=== PATIENT | female | born 1990 | race American Indian/Alaskan Native ===

== ENCOUNTER 2019-12-23 11:03 | Emergency (ER) | payer SELFPAY ==
[2019-12-23 11:15] VITALS: BP 110/68
--- NOTE | 2019-12-23 11:57 | Emergency Department Report ---
ED Female HPI - General Chief complaint: Urogenital-Female Stated complaint: VAGINAL CYST Time Seen by Provider: 12/23/19 11:36 Source: patient Mode of arrival: Ambulatory Limitations: No Limitations - History of Present Illness Initial comments: Patient is a 29-year-old female presents to the ED with complaints of a right- sided Bartholin cyst that began 2 weeks ago. She states that it has slightly increased over the last 4 days. She states it has become more uncomfortable. Patient states that she has recurrently had this Bartholin cyst since 2012. She states that she has had it drained multiple times since 2012. She states that in 2018 that her MATHEMATICAL SCIENTIST Dr. Cruz performed an I&D and stitched it to remain open and draining which she states improved it for a while. She states she typically uses warm compresses and it intermittently comes and goes and drains on its own. She denies any drainage currently, no fever, no vomiting, no c hills, no lesions or blisters. She states her last menstrual cycle December 15, 2019. No other past medical history. No allergies to medications. - Related Data Previous Rx's Medication Instructions Recorded Last Taken Type Acetaminophen/Codeine 1 tab PO Q6H PRN #30 tab 01/08/14 Unknown Rx [Acetaminophen-Codeine #3 TAB] Ibuprofen [Motrin] 600 mg PO Q8H PRN #60 tablet 01/08/14 Unknown Rx Sulfamethoxazole/Trimethoprim 1 each PO BID #20 tablet 01/08/14 Unknown Rx [Bactrim Ds] Acetaminophen/Codeine [Tylenol 1 tab PO Q6H PRN #10 tab 12/23/19 Unknown Rx /Codeine # 3 tab] Ibuprofen [Motrin 600 MG tab] 600 mg PO Q8H PRN #14 tablet 12/23/19 Unknown Rx Sulfamethoxazole/Trimethoprim 1 each PO BID 7 Days #14 tablet 12/23/19 Unknown Rx [Bactrim DS TAB] metroNIDAZOLE [Flagyl] 500 mg PO BID 7 Days #14 tab 12/23/19 Unknown Rx Allergies Allergy/AdvReac Type Severity Reaction Status Date / Time No Known Allergies Allergy Unverified 01/08/14 16:13 ED Review of Systems ROS: Stated complaint: VAGINAL CYST Other details as noted in HPI Comment: All other systems reviewed and negative ED Past Medical Hx - Past Medical History Previous Medical History?: Yes Additional medical history: Bartholin cyst - Surgical History Past Surgical History?: No - Social History Smoking Status: Never Smoker Substance Use Type: None - Medications Home Medications: Home Medications Medication Instructions Recorded Confirmed Last Taken Type Acetaminophen/Codeine 1 tab PO Q6H PRN #30 tab 01/08/14 Unknown Rx [Acetaminophen-Codeine #3 TAB] Ibuprofen [Motrin] 600 mg PO Q8H PRN #60 tablet 01/08/14 Unknown Rx Sulfamethoxazole/Trimethoprim 1 each PO BID #20 tablet 01/08/14 Unknown Rx [Bactrim Ds] Acetaminophen/Codeine [Tylenol 1 tab PO Q6H PRN #10 tab 12/23/19 Unknown Rx /Codeine # 3 tab] Ibuprofen [Motrin 600 MG tab] 600 mg PO Q8H PRN #14 tablet 12/23/19 Unknown Rx Sulfamethoxazole/Trimethoprim 1 each PO BID 7 Days #14 tablet 12/23/19 Unknown Rx [Bactrim DS TAB] metroNIDAZOLE [Flagyl] 500 mg PO BID 7 Days #14 tab 12/23/19 Unknown Rx ED Physical Exam - General Limitations: No Limitations General appearance: alert, in no apparent distress - Head Head exam: Present: atraumatic, normocephalic - Eye Eye exam: Present: normal appearance - ENT ENT exam: Present: mucous membranes moist - External exam: Present: swelling (1 cm area of induration present to the right inner labia at the regional of the bartholins gland, no central fluctuance, no surrounding erythema or edema, no drainage, no opening, no necrosis, no blistering), other (social services counselor: DULCE parra). Absent: lesions, lacerations, ecchymosis, bleeding - Neurological Exam Neurological exam: Present: alert, oriented X3 - Psychiatric Psychiatric exam: Present: normal affect, normal mood - Skin Skin exam: Present: warm, dry ED Course Vital Signs 12/23/19 11:13 Temperature 98 F Pulse Rate 76 Respiratory 20 Rate Blood Pressure 110/68 O2 Sat by Pulse 100 Oximetry ED Medical Decision Making - Medical Decision Making Patient is a 29-year-old female presents to the ED with complaints of a right- sided Bartholin cyst that began 2 weeks ago. She states that it has slightly increased over the last 4 days. She states it has become more uncomfortable. Patient states that she has recurrently had this Bartholin cyst since 2013. She states that she has had it drained multiple times since 2012. She states that in 2018 that her MATHEMATICAL SCIENTIST Dr. Cruz performed an I&D and stitched it to remain open and draining which she states improved it for a while. She states she typically uses warm compresses and it intermittently comes and goes and drains on its own. She denies any drainage currently, no fever, no vomiting, no chills, no lesions or blisters. She states her last menstrual cycle December 15, 2019. No other past medical history. No allergies to medications. vitals are normal. on exam: 1 cm area of induration present to the right inner labia at the regional of the bartholins gland, no central fluctuance, no surrounding erythema or edema, no drainage, no opening, no necrosis, no blistering, social services counselor: DULCE Parra. There is only a very small area of induration, there is not any fluctuance, would not recommend I&D at this time, discussed this with patient and she agrees with outpatient trial of antibiotics and MATHEMATICAL SCIENTIST follow- up. Discussed strict return precautions with patient. patient given prescription for Flagyl, Bactrim, ibuprofen, tylenol #3. advised pt Please take medication as prescribed. Do not drink alcohol while taking medication. Please take antibiotics with food. Do not drive or operate machinery while taking pain medication. Please use warm compresses 3-5 times a day. Please soak in Epson salt baths. Please have area reexamined within the next 3 days. Follow- up with your MATHEMATICAL SCIENTIST. Return to emergency room immediately for any new or wor sening symptoms including but not limited to worsening pain, worsening swelling, fever, chills, vomiting, etc. Critical care attestation.: If time is entered above; I have spent that time in minutes in the direct care of this critically ill patient, excluding procedure time. ED Disposition Clinical Impression: Bartholin cyst Disposition: - TO HOME OR SELFCARE Is pt being admited?: No Does the pt Need Aspirin: No Condition: Stable Instructions: Bartholin Cyst (ED) Additional Instructions: Please take medication as prescribed. Do not drink alcohol while taking medication. Please take antibiotics with food. Do not drive or operate machinery while taking pain medication. Please use warm compresses 3-5 times a day. Please soak in Epson salt baths. Please have area reexamined within the next 3 days. Follow-up with your MATHEMATICAL SCIENTIST. Return to emergency room immediately for any new or worsening symptoms including but not limited to worsening pain, worsening swelling, fever, chills, vomiting, etc. Prescriptions: Sulfamethoxazole/Trimethoprim [Bactrim DS TAB] 1 each PO BID 7 Days #14 tablet metroNIDAZOLE [Flagyl] 500 mg PO BID 7 Days #14 tab Ibuprofen [Motrin 600 MG tab] 600 mg PO Q8H PRN #14 tablet PRN Reason: Pain, Moderate (4-6) Acetaminophen/Codeine [Tylenol /Codeine # 3 tab] 1 tab PO Q6H PRN #10 tab PRN Reason: Pain , Severe (7-10) Referrals: your, film archivist [Other] - 2-3 Days Time of Disposition: 11:57 Print Language: SALVADOREAN
== END 2019-12-23 12:07 | disposition home or self-care (01) ==
LOC: ED 11:03
DX: N75.0 Cyst of Bartholin's gland (principal); Z79.899 Other long term (current) drug therapy
CPT/HCPCS: 99282

== ENCOUNTER 2020-07-21 09:39 | Emergency (ER) | payer SELFPAY ==
[2020-07-21 10:17] VITALS: BP 147/92
--- NOTE | 2020-07-21 10:49 | Emergency Department Report ---
ED Abdominal Pain HPI - General Chief Complaint: Extremity Injury, Lower Stated Complaint: ABD/BACK PAIN/HEADACHE Time Seen by Provider: 07/21/20 10:44 Source: patient Mode of arrival: Ambulatory Limitations: No Limitations - History of Present Illness Initial Comments: 49-year-old female presents to the ER today with complaints of low abdominal pain and lower back pain. Patient states that her symptoms started around July 02. She states that when her symptoms started she thought it was related to her menstrual cycle. She states that her menstrual cycle started around July 01 which is actually earlier than normal. It was supposed to start around July 06. She states that she went to [facility] around July 05 for evaluation of her symptoms. She states that her HOME DEMONSTRATION AGENT did a Pap smear, as well as check for infection, and labs. She states that HOME DEMONSTRATION AGENT told her that she had a "a bacterial infection" and was treated with amoxicillin but everything else was fine. Patient states that she completed her menstrual cycle around July 12 and she still continues to have pain in her lower back and in her lower abdomen with associated headache. She states that she has not had any sexual intercourse since she was seen by HOME DEMONSTRATION AGENT and had a pelvic exam. She denies any abnormal vaginal discharge or abnormal bleeding since her HOME DEMONSTRATION AGENT visit. She denies any UTI symptoms. She denies any nausea or vomiting. She denies any history of abdominal surgeries. She is G2, P1 Ab0. Complaint: abdominal pain -: Gradual (Since 07/02/2020) - Related Data Previous Rx's Medication Instructions Recorded Last Taken Type Acetaminophen/Codeine 1 tab PO Q6H PRN #30 tab 01/08/14 Unknown Rx [Acetaminophen-Codeine #3 TAB] Ibuprofen [Motrin] 600 mg PO Q8H PRN #60 tablet 01/08/14 Unknown Rx Sulfamethoxazole/Trimethoprim 1 each PO BID #20 tablet 01/08/14 Unknown Rx [Bactrim Ds] Acetaminophen/Codeine [Tylenol 1 tab PO Q6H PRN #10 tab 12/23/19 Unknown Rx /Codeine # 3 tab] Sulfamethoxazole/Trimethoprim 1 each PO BID 7 Days #14 tablet 12/23/19 Unknown Rx [Bactrim DS TAB] metroNIDAZOLE [Flagyl] 500 mg PO BID 7 Days #14 tab 12/23/19 Unknown Rx Ferrous Sulfate [Feosol 325 MG tab] 325 mg PO TID #30 tablet 07/21/20 Unknown Rx Ibuprofen [Motrin 600 MG tab] 600 mg PO Q8H PRN #14 tablet 07/21/20 Unknown Rx Allergies Allergy/AdvReac Type Severity Reaction Status Date / Time No Known Allergies Allergy Unverified 01/08/14 16:13 ED Review of Systems ROS: Stated complaint: ABD/BACK PAIN/HEADACHE Other details as noted in HPI Comment: All other systems reviewed and negative Constitutional: denies: chills, diaphoresis, fever, malaise, weakness Eyes: denies: eye pain, eye discharge, vision change ENT: denies: ear pain, throat pain Respiratory: no symptoms reported. denies: orthopnea, shortness of breath, SOB with exertion, SOB at rest, wheezing Cardiovascular: denies: chest pain, palpitations Endocrine: no symptoms reported Gastrointestinal: abdominal pain. denies: nausea, vomiting, diarrhea, constipation, hematemesis, melena, hematochezia Genitourinary: denies: urgency, dysuria, frequency, hematuria, discharge, abnormal menses, dyspareunia Musculoskeletal: back pain Skin: denies: rash, lesions, change in color, change in hair/nails, pruritus, other Neurological: headache. denies: weakness, paresthesias Psychiatric: denies: anxiety, depression, auditory hallucinations, visual hallucinations, homicidal thoughts, suicidal thoughts Hematological/Lymphatic: denies: easy bleeding, easy bruising ED Past Medical Hx - Past Medical History Previous Medical History?: Yes Additional medical history: Bartholin cyst - Surgical History Past Surgical History?: No - Social History Smoking Status: Never Smoker - Medications Home Medications: Home Medications Medication Instructions Recorded Confirmed Last Taken Type Acetaminophen/Codeine 1 tab PO Q6H PRN #30 tab 01/08/14 Unknown Rx [Acetaminophen-Codeine #3 TAB] Ibuprofen [Motrin] 600 mg PO Q8H PRN #60 tablet 01/08/14 Unknown Rx Sulfamethoxazole/Trimethoprim 1 each PO BID #20 tablet 01/08/14 Unknown Rx [Bactrim Ds] Acetaminophen/Codeine [Tylenol 1 tab PO Q6H PRN #10 tab 12/23/19 Unknown Rx /Codeine # 3 tab] Sulfamethoxazole/Trimethoprim 1 each PO BID 7 Days #14 tablet 12/23/19 Unknown Rx [Bactrim DS TAB] metroNIDAZOLE [Flagyl] 500 mg PO BID 7 Days #14 tab 12/23/19 Unknown Rx Ferrous Sulfate [Feosol 325 MG tab] 325 mg PO TID #30 tablet 07/21/20 Unknown Rx Ibuprofen [Motrin 600 MG tab] 600 mg PO Q8H PRN #14 tablet 07/21/20 Unknown Rx ED Physical Exam - General Limitations: No Limitations General appearance: alert, in no apparent distress - Head Head exam: Present: atraumatic, normocephalic, normal inspection - Eye Eye exam: Present: normal appearance, PERRL, EOMI Pupils: Present: normal accommodation - ENT ENT exam: Present: normal exam, mucous membranes moist - Neck Neck exam: Present: normal inspection, full ROM - Respiratory Respiratory exam: Present: normal lung sounds bilaterally. Absent: respiratory distress, wheezes, rales, rhonchi, stridor - Cardiovascular Cardiovascular Exam: Present: regular rate, normal rhythm, normal heart sounds - GI/Abdominal GI/Abdominal exam: Present: soft. Absent: distended, tenderness, guarding - Neurological Exam Neurological exam: Present: alert, oriented X3, CN II-XII intact, normal gait - Psychiatric Psychiatric exam: Present: normal affect, normal mood - Skin Skin exam: Present: intact ED Course Vital Signs 07/21/20 10:13 Temperature 99.4 F Pulse Rate 77 Respiratory 18 Rate Blood Pressure 147/92 O2 Sat by Pulse 100 Oximetry ED Medical Decision Making - Lab Data Result diagrams: 07/21/20 11:05 07/21/20 11:05 - Medical Decision Making 1348: The patient is resting comfortably and , is alert and in no distress. Her abdominal exam is unremarkable and benign; in particular, there is no discomfort at McBurney's point and there is no pulsatile mass. Labs reviewed and showed that patient had a hemoglobin of 8.8. She admits that she was told once before she has a history of anemia and she was prescribed iron supplements but that was a few months back. Remainder of her labs are unremarkable. Her history, exam, diagnostic testing and current condition do not suggest acute appendicitis, bowel obstruction, acute cholecystitis, bowel perforation, major GI bleed, severe diverticulitis, abdominal aortic aneurysm, mesenteric ischemia, volvulus, ovarian torsion, ovarian abscess, sepsis or other significant pathology to warrant further testing, continued ED treatment, admission or surgical evaluation at this point. The patient's vital signs have been stable. Recommend that patient follow-up with her HOME DEMONSTRATION AGENT for further evaluation including a pelvic ultrasound. She was started on iron supplements and Motrin for pain. Her condition is stable. She expressed understanding of results, and instructions and the need for follow-up. Patient stable at time of discharge. Critical care attestation.: If time is entered above; I have spent that time in minutes in the direct care of this critically ill patient, excluding procedure time. ED Disposition Clinical Impression: Lower abdominal pain, Pelvic pain, Anemia Disposition: - TO HOME OR SELFCARE Is pt being admited?: No Does the pt Need Aspirin: No Condition: Stable Instructions: Pelvic Pain, Female, Abdominal Pain, Adult, [id number] Additional Instructions: Take the motrin and iron supplement as prescribed. Recommend that you follow-up with HOME DEMONSTRATION AGENT for an outpatient pelvic ultrasound and further evaluation of your anemia. Return to the ER if your symptoms worsens or changes in any way. Prescriptions: Ferrous Sulfate [Feosol 325 MG tab] 325 mg PO TID #30 tablet Ibuprofen [Motrin 600 MG tab] 600 mg PO Q8H PRN #14 tablet PRN Reason: Pain, Moderate (4-6) Referrals: SUHAIL ISLAS MD [Primary Care Provider] - 3-5 Days Time of Disposition: 13:55
[2020-07-21 11:30] LABS: Basophils % (Auto) 1.1 % (0.0-1.8); Eosinophils # (Auto) 0.1 K/mm3 (0.0-0.4); Eosinophils % (Auto) 1.7 % (0.0-4.3); Hematocrit 28.3 % (30.3-42.9); Hemoglobin 8.8 gm/dl (10.1-14.3); Lymphocytes # (Auto) 1.2 K/mm3 (1.2-5.4); Lymphocytes % (Auto) 36.8 % (13.4-35.0); Mean Corpuscular HGB Conc 31 % (30-34); Mean Corpuscular Volume 74 fl (79-97); Monocytes # (Auto) 0.4 K/mm3 (0.0-0.8); Monocytes % (Auto) 13.2 % (0.0-7.3); Platelet Count 182 K/mm3 (140-440); Red Blood Count 3.84 M/mm3 (3.65-5.03); Red Cell Distribution Width 19.3 % (13.2-15.2)
[2020-07-21 12:05] LABS: Alanine Aminotransferase 9 units/L (7-56); Blood Urea Nitrogen 8 mg/dL (7-17); Calcium 8.5 mg/dL (8.4-10.2); Hemolysis Index 1
[2020-07-21 12:12] LABS: BUN/Creatinine Ratio 13
[2020-07-21 13:08] LABS: Bacteria,Urine 3+ /HPF (Negative); Bilirubin,Urine NEG (Negative); Blood,Urine NEG (Negative); Color,Urine Yellow (Yellow); Protein,Urine <15 mg/dL mg/dL (Negative); Urobilinogen,Urine < 2.0 mg/dL (<2.0)
== END 2020-07-21 14:17 | disposition home or self-care (01) ==
LOC: ED 09:39
DX: D64.9 Anemia, unspecified (principal); R10.30 Lower abdominal pain, unspecified; R10.2 Pelvic and perineal pain; Z79.899 Other long term (current) drug therapy
CPT/HCPCS: 36415; 80053; 81001; 83690; 84703; 85025